=== PATIENT | male | born 1955 | race Caucasian/White ===

== ENCOUNTER 2016-10-25 13:22 | Emergency (ER) | payer MEDICAID ==
[~2016-10-25] VITALS: Wt 76.0 kg
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
== END 2016-10-25 17:17 | disposition home or self-care (01) ==
LOC: FTE 13:22
DX: R42 Dizziness and giddiness (principal); Z04.1 Encounter for examination and observation following transport accident; V49.40XA Driver injured in collision with unspecified motor vehicles in traffic accident, initial encounter; Y92.410 Unspecified street and highway as the place of occurrence of the external cause
CPT/HCPCS: 70450; Z7502